=== PATIENT | female | born 1960 | race Caucasian/White ===

== ENCOUNTER 2017-09-16 12:33 | Emergency (ER) | payer BC, MEDICAID ==
[2017-09-16 12:50] VITALS: BP 157/86
[2017-09-16] MEDS ORDERED: LORazepam 2 MG/ML MDV IVPUSH ONE (13:15)
[2017-09-16] MEDS ORDERED: Sodium Chloride 0.9% 10 ML Syringe FLUSH PRN (13:15)
[2017-09-16] MEDS ORDERED: Sodium Chloride 0.9% 1,000 ML IV ONE (13:15)
--- NOTE | 2017-09-16 13:22 | EDM.PDOCBH ---
ED HPI GENERAL MEDICAL PROBLEM - General Chief Complaint: Behavioral/Psych Stated Complaint: [facility] Time Seen by Provider: 09/16/17 13:00 Source of Information: Reports: Patient History Limitations: Reports: Language Barrier - History of Present Illness INITIAL COMMENTS - FREE TEXT/NARRATIVE: 57-year-old female presents via [facility] for evaluation and treatment of depression and anxiety. Reportedly the patient works as a [employer]. It sounds as if she had an argument last night or the night before with a coworker or superior. Patient works nights. She reports this morning she was unable to finish her work. It's unclear if this was because of anxiety or due to vomiting and diarrhea that she also has been experiencing. Patient reports feeling sad. She states that she sleeps okay. Normally has a good appetite but over the last 24 hours has not had much to eat. States that she will on occasion take melatonin for sleep. Patient reports she has never been on any medications for depression or anxiety. She denies any suicidal ideation or plan. Denies any homicidal ideation or plan. Reports around 02:30 this morning she felt sick. She reports that she vomited 3 times. Reports that she had 4 episodes of diarrhea and had excessive salivation. She denies any blood in her stool or abdominal pain. She reports "a little bit "of a headache and a slight cough. She denies any chest pain. Reports that she did feel short of breath earlier but this has since resolved. Patient speaks primarily [place]. She does sit speaks some Slovak but a language barrier is present. Patient has no PCP. - Related Data Allergies Allergy/AdvReac Type Severity Reaction Status Date / Time No Known Allergies Allergy Verified 09/16/17 12:49 Home Meds: Home Meds . [No Known Home Meds] 11/07/14 [History] Past Medical History - Past Health History Medical/Surgical History: Denies Medical/Surgical History Psychiatric History: Reports: Anxiety Social & Family History - Family History Family Medical History: Noncontributory - Tobacco Use Smoking Status *Q: Current Every Day Smoker Years of Tobacco use: 15 Packs/Tins Daily: 0.2 Second Hand Smoke Exposure: Yes - Caffeine Use Caffeine Use: Reports: Coffee - Alcohol Use Days Per Week of Alcohol Use: 6 Number of Drinks Per Day: 1 Total Drinks Per Week: 6 - Recreational Drug Use Recreational Drug Use: No - Living Situation & Occupation Living situation: Reports: , with Spouse Occupation: Employed ED ROS GENERAL - Review of Systems Review Of Systems: See Below Constitutional: Reports: Chills, Decreased Appetite HEENT: Reports: Other (epistaxis x 1) Respiratory: Reports: Shortness of Breath (earlier, now resolved) Cardiovascular: Denies: Chest Pain GI/Abdominal: Reports: Diarrhea, Vomiting. Denies: Hematochezia, Melena Neurological: Reports: Headache ("little") Psychiatric: Reports: Anxiety, Depression. Denies: Homicidal Ideation, Suicidal Ideation ED EXAM, BEHAVIORAL HEALTH - Physical Exam Exam: See Below Exam Limited By: No Limitations General Appearance: Alert, WD/WN, No Apparent Distress Eye Exam: Bilateral Eye: Normal Inspection Ears: Normal External Exam, Other (TMS obscured by cerumen) Nose: Normal Inspection Throat/Mouth: Normal Inspection, Normal Lips, Normal Voice, No Airway Compromise Neck: Normal Inspection Respiratory/Chest: No Respiratory Distress, Lungs Clear, Normal Breath Sounds Cardiovascular: Normal Peripheral Pulses, Regular Rate, Rhythm, No Murmur GI/Abdominal: Normal Bowel Sounds, Soft, Non-Tender Neurological: Alert, Normal Mood/Affect, Normal Cognition Psychiatric: Alert, Normal Affect, Normal Cognition, Normal Mood. No: Homicidal Thoughts, Suicidal Plan, Suicidal Thoughts, Threatening Behavior Skin Exam: Warm, Dry, Normal color EKG INTERPRETATION EKG Date: 09/16/17 Time: 14:00 Rhythm: NSR Rate (Beats/Min): 68 Golden: Normal P-Wave: Present QRS: Normal ST-T: Normal QT: Prolonged (borderline, QTc 496) EKG Interpretation Comments: NSR at 68 bpm. Borderline prolonged Qt with a QTc of 496. Reviewed by myself and Dr. Sauer. COURSE, BEHAVIORAL HEALTH COMP - Course Vital Signs: Last Vital Signs Temp 36.6 C 09/16/17 12:46 Pulse 63 09/16/17 12:46 Resp 18 09/16/17 12:46 BP 157/86 H 09/16/17 12:46 Pulse Ox 100 09/16/17 12:46 Orders, Labs, Meds: Active Orders 24 hr Category Date Time Status Cardiac Monitoring [RC] . DIRECTED Care 09/16/17 13:15 Active EKG 12 Lead [EKG Documentation Completion] [RC] STAT Care 09/16/17 13:14 Active Peripheral IV Care [RC] . DIRECTED Care 09/16/17 13:15 Active Chest 1V Frontal [CR] Stat Exams 09/16/17 13:15 Taken Peripheral IV Insertion Adult [OM.PC] Routine Oth 09/16/17 13:15 Ordered Laboratory Tests 09/16/17 09/16/17 09/16/17 Range/Units 13:30 13:30 13:30 WBC 7.53 (3.98-10.04) K/mm3 RBC 4.45 (3.98-5.22) M/mm3 Hgb 14.4 (11.2-15.7) gm/L Hct 42.2 (34.1-44.9) % MCV 94.8 (79.4-94.8) fl MCH 32.4 H (25.6-32.2) pg MCHC 34.1 (32.2-35.5) g/dl RDW Std Deviation 46.3 (36.4-46.3) fL Plt Count 240 (182-369) K/mm3 MPV 9.4 (9.4-12.3) fl Neutrophils % (Manual) 38 L (40-60) % Band Neutrophils % 0 (0-10) % Lymphocytes % (Manual) 49 H (20-40) % Atypical Lymphs % 3 % Monocytes % (Manual) 6 (2-10) % Eosinophils % (Manual) 4 (0.7-5.8) % Basophils % (Manual) 0 L (0.1-1.2) Platelet Estimate Adequate RBC Morph Comment Normal PT 10.6 (8.0-13.0) SECONDS INR 0.97 APTT 25 (22-36) SECONDS Sodium 141 (136-145) mEq/L Potassium 3.7 (3.5-5.1) mEq/L Chloride 106 (98-107) mEq/L Carbon Dioxide 26 (21-32) mEq/L Anion Gap 12.7 (5-15) BUN 14 (7-18) mg/dL Creatinine 0.6 (0.55-1.02) mg/dL Est Cr Clr Drug Dosing 76.10 mL/min Estimated GFR (MDRD) > 60 (>60) mL/min BUN/Creatinine Ratio 23.3 H (14-18) Glucose 120 H (74-106) mg/dL Calcium 8.8 (8.5-10.1) mg/dL Total Bilirubin 0.5 (0.2-1.0) mg/dL AST 43 H (15-37) U/L ALT 74 H (14-59) U/L Alkaline Phosphatase 125 H (46-116) U/L Troponin I < 0.017 (0.00-0.056) ng/mL Total Protein 6.9 (6.4-8.2) g/dl Albumin 3.5 (3.4-5.0) g/dl Globulin 3.4 gm/dL Albumin/Globulin Ratio 1.0 (1-2) TSH 3rd Generation 0.884 (0.358-3.74) uIU/mL Medications Discontinued Medications Generic Name Dose Route Start Last Admin Trade Name Freq PRN Reason Stop Dose Admin Sodium Chloride 1,000 mls @ 999 mls/hr 09/16/17 13:15 09/16/17 13:37 Normal Saline IV 09/16/17 14:15 999 mls/hr ONETIME ONE Administration Lorazepam 0.5 mg 09/16/17 13:15 09/16/17 13:37 Ativan IVPUSH 09/16/17 13:16 0.5 mg ONETIME ONE Administration Sodium Chloride 10 ml 09/16/17 13:15 09/16/17 13:32 Saline Flush FLUSH 10 ml ASDIRECTED PRN Administration Keep Vein Open Re-Assessment/Re-Exam: 16:00 chest xray shows no acute intrathoracic process. I reviewed the labs, imaging EKG with the patient. She is resting comfortably at this time. The Ativan seemed to make her quite fatigued. She would like me to start her on medication for depression and anxiety. Given that she does not have a primary care provider and therefore has no follow-up I did not feel comfortable starting her on something. I encouraged her to follow-up with family medicine this week to discuss her symptoms and be properly be screened for depression and anxiety. I informed her my job in the ER is to make sure she is not suicidal or homicidal which she is denying to me at this time. I feel that her vomiting and diarrhea this morning was like because from a GI bug. We will discharge her home at this time. Discharge instructions as documented. Departure - Departure Time of Disposition: 16:02 Disposition: Home, Self-Care 01 Condition: Fair Clinical Impression: Anxiety - Discharge Information Instructions: Panic Attacks, [id number] Referrals: PCP,Not In Area [Primary Care Provider] - Jhony Andrade MD [Resident] - Forms: ED Department Discharge, ED Return to Work/School Form Additional Instructions: Follow-up with family medicine this week or next week to discuss her depression and anxiety and for further management. Recommend , at the [facility]. Please call [phone] to schedule an appointment with him. Note given forward. you may return tonight if you feel you can do your job safely. Clear fluids and bland diet today. Plan that recommendations include crackers, egg whites, bread, applesauce, rice, bananas, etc. May advance to a normal diet tomorrow as tolerated. Recommend starting a probiotic. These are available [id number]. Please return to the ER if your Symptoms change or worsen. - My Orders Last 24 Hours: My Active Orders 09/16/17 13:14 EKG 12 Lead [EKG Documentation Completion] [RC] STAT 09/16/17 13:15 Cardiac Monitoring [RC] . DIRECTED Peripheral IV Care [RC] . DIRECTED Chest 1V Frontal [CR] Stat Peripheral IV Insertion Adult [OM.PC] Routine - Assessment/Plan Last 24 Hours: My Active Orders 09/16/17 13:14 EKG 12 Lead [EKG Documentation Completion] [RC] STAT 09/16/17 13:15 Cardiac Monitoring [RC] . DIRECTED Peripheral IV Care [RC] . DIRECTED Chest 1V Frontal [CR] Stat Peripheral IV Insertion Adult [OM.PC] Routine
--- NOTE | 2017-09-17 12:17 | CR ---
Chest: Portable view of the chest was obtained. Comparison: No prior study. Heart size is normal. Tortuous thoracic aorta is seen. Lungs are clear. Bony structures are grossly intact. Impression: 1. Nothing acute is identified on portable chest x-ray. Diagnostic code #1
== END 2017-09-16 16:20 | disposition home or self-care (01) ==
LOC: JD.ED 12:33
DX: F41.9 Anxiety disorder, unspecified (principal); F17.210 Nicotine dependence, cigarettes, uncomplicated
CPT/HCPCS: 36415; 71045; 80053; 84443; 84484; 85025; 85610; 85730; 87804; 93005; 96361; 96374; 99285; J2060; J7040; J7050; 93010; 99284-25